=== PATIENT | female | born 1980 | race Caucasian/White ===

== ENCOUNTER 2016-03-22 16:15 | Emergency (ER) | payer MEDICARE, OTHER ==
[2016-03-22] MEDS ORDERED: KETOROLAC 30 MG/ML 1 ML VIAL IVP STA (16:22)
[2016-03-22] MEDS ORDERED: ORPHENADRINE 30 MG/ML 2 ML VIAL IVP STA (16:23)
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
[2016-03-22 16:33] VITALS: TEMP 99.2
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
[2016-03-22] MEDS ORDERED: HYDROmorphone 1 MG/ML 1 ML SYRINGE IVP STA ×2 (17:56→18:41)
--- NOTE | 2016-03-22 18:31 | XR ---
EXAMINATION TYPE: XR knee complete RT DATE OF EXAM: 03/22/2016 6:11 PM COMPARISON: NONE HISTORY: Knee pain TECHNIQUE: 3 views FINDINGS: I see no fracture nor dislocation. Joint spaces are normal. There is a knee prosthesis. The re is no sign of joint effusion. IMPRESSION: Negative right knee exam.
--- NOTE | 2016-03-22 18:32 | XR ---
EXAMINATION TYPE: XR chest 2V DATE OF EXAM: 03/22/2016 6:11 PM COMPARISON: 01/09/2012 HISTORY: Cough and chest pain TECHNIQUE: Frontal and lateral views of the chest are obtained. FINDINGS: Heart and mediastinum are normal. Lungs are clear. Diaphragm is normal. Bony thorax is int act. There is no sign of a pneumothorax. IMPRESSION: Normal chest. No change.
--- NOTE | 2016-03-22 19:12 | XR ---
EXAMINATION TYPE: XR ankle complete RT DATE OF EXAM: 03/22/2016 7:07 PM COMPARISON: NONE HISTORY: Ankle pain TECHNIQUE: 3 views FINDINGS: There are plates and screws fixing old bimalleolar fracture of the ankle. Ankle mortise is anatomic. I see no acute fracture. There is spurring of the posterior malleolus. Subtalar joint is in tact. There are small cystic changes in the lateral dome of the talus. IMPRESSION: Previous surgery. 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
--- NOTE | 2016-03-22 19:18 | XR ---
EXAMINATION TYPE: XR foot complete RT DATE OF EXAM: 03/22/2016 7:10 PM COMPARISON: NONE HISTORY: Foot pain TECHNIQUE: 3 views FINDINGS: I see no fracture nor dislocation. Metatarsals are intact. There are no erosions. There is previous ankle surgery noted. IMPRESSION: No acute abnormality of the right foot.
[2016-03-22 19:36] VITALS: BP 120/70; PULSE 60; RESP 16
== END 2016-03-22 19:36 | disposition home or self-care (01) ==
LOC: EC 16:15
DX: S16.1XXA Strain of muscle, fascia and tendon at neck level, initial encounter (principal); S96.912A Strain of unspecified muscle and tendon at ankle and foot level, left foot, initial encounter; S33.5XXA Sprain of ligaments of lumbar spine, initial encounter; M50.30 Other cervical disc degeneration, unspecified cervical region; G40.909 Epilepsy, unspecified, not intractable, without status epilepticus; G62.9 Polyneuropathy, unspecified; F41.9 Anxiety disorder, unspecified; F32.9 Major depressive disorder, single episode, unspecified; F17.200 Nicotine dependence, unspecified, uncomplicated; Z79.899 Other long term (current) drug therapy; Z88.5 Allergy status to narcotic agent; Z88.6 Allergy status to analgesic agent; V53.6XXA Passenger in pick-up truck or van injured in collision with car, pick-up truck or van in traffic accident, initial encounter; Y92.481 Parking lot as the place of occurrence of the external cause
CPT/HCPCS: 71020; 73562; 73610; 73630; 72125; 72131; 99285; 96374; 96375 ×2; 96376; J2360; J1885; J1170

== ENCOUNTER → 2016-03-26 | Outpatient (CLI) | payer MEDICARE, OTHER ==
--- NOTE | 2016-03-26 14:37 | CT ---
EXAMINATION TYPE: CT knee RT wo con DATE OF EXAM: 03/26/2016 2:31 PM COMPARISON: X-ray 03/22/2016 HISTORY: pain CT DLP: 439.4 mGycm Automated exposure control for dose reduction was used. FINDINGS: There is a right knee prosthesis which results in severe artifact. This markedly limits the exam. Visualized musculature and remaining osseous structures are intact. There is a atrophy of the anterior musculature. There is lucency along the medial and lateral tibial component of the prostheses. IMPRESSION: MARKEDLY LIMITED EXAM DUE TO SEVERE METALLIC ARTIFACT FROM THE PATIENT'S KNEE PROSTHESES. EXAM NEARLY NONDIAGNOSTIC FOR THE LEVEL OF THE KNEE JOINT. REMAINING STRUCTURES DEMONSTRATE NO ACUTE ABNORMALITY . THERE IS A THIN AREA OF LUCENCY ALONG THE LATERAL AND MEDIAL TIBIAL COMPONENT OF THE PROSTHESES. IF THERE IS CONCERN FOR LOOSENING CORRELATE WITH BONE SCAN..
== END | disposition home or self-care (01) ==
LOC: RADCTMAIN 14:12
PROVIDERS: ATTEND Family Medicine
DX: M25.561 Pain in right knee (principal); Z96.651 Presence of right artificial knee joint

== ENCOUNTER → 2016-07-15 | Outpatient (CLI) | payer SELFPAY ==
--- NOTE | 2016-07-15 08:36 | XR ---
EXAMINATION TYPE: XR chest 2V DATE OF EXAM: 07/15/2016 COMPARISON: Chest x-ray March 22, 2016. HISTORY: Tobacco use, annual physical exam TECHNIQUE: Frontal and lateral views of the chest are obtained. FINDINGS: There is no focal air space opacity, pleural effusion, or pneumothorax seen. Rounded 1.1 c m density right lung base likely reflects patient nipple. The cardiac silhouette size is within norm al limits. The osseous structures are intact. IMPRESSION: No acute cardiopulmonary process. Suspect patient's nipple shadow, advise repeat study w ith nipple markers to confirm.
[2016-07-15 08:39] LABS: CH 30.8; CHCM 32.6; HCT 45.8 % (34.0-46.0); HDW 2.37; HGB 14.9 gm/dL (11.4-16.0); MCH 30.8 pg (25.0-35.0); MCHC 32.5 g/dL (31.0-37.0); MCV 94.8 fL (80.0-100.0); Mean Platelet Volume 7.8; RBC 4.83 m/uL (3.80-5.40); WBC 5.6 k/uL (3.8-10.6)
[2016-07-15 08:40] LABS: Appearance,Urine Turbid (Clear); Bacteria,Urine Rare /hpf; Bilirubin,Urine Negative (Negative); Glucose,Urine (UA) Negative (Negative); Ketones,Urine Negative (Negative); Leukocyte Esterase,Urine Large (Negative); Mucus,Urine Moderate /hpf; Nitrite,Urine Negative (Negative); PH, Urine 5.5 (5.0-8.0); Particle Count 43114; Protein,Urine 1+ (Negative); Specific Gravity,Urine 1.021 (1.001-1.035); Squamous Epithelial Cell,Urine 50 /hpf (0-4); UA Billing (MACRO vs. MICRO) MICRO; WBC,Urine 77 /hpf (0-5)
[2016-07-15 15:35] LABS: ALT 231 U/L (9-52); AST 274 U/L (14-36); Alkaline Phosphatase 87 U/L (38-126); Anion Gap 13 mmol/L; Blood Urea Nitrogen 13 mg/dL (7-17); Calcium 8.9 mg/dL (8.4-10.2); Carbon Dioxide 21 mmol/L (22-30); Chloride 107 mmol/L (98-107); Cholesterol 148 mg/dL (<200); Glucose 100 mg/dL (74-99); HDL Cholesterol 76 mg/dL (40-60); Non-African American GFR(MDRD) >60 (>60 ml/min/1.73 sqM); Potassium 4.7 mmol/L (3.5-5.1); Sodium 141 mmol/L (137-145); Total Bilirubin 0.8 mg/dL (0.2-1.3); Total Protein 7.6 g/dL (6.3-8.2); Triglycerides 105 mg/dL (<150)
== END | disposition home or self-care (01) ==
LOC: LABWHC1 07:56
PROVIDERS: ATTEND Internal Medicine
DX: Z00.00 Encounter for general adult medical examination without abnormal findings (principal); E78.2 Mixed hyperlipidemia; E66.1 Drug-induced obesity; G40.909 Epilepsy, unspecified, not intractable, without status epilepticus; I49.9 Cardiac arrhythmia, unspecified; R35.0 Frequency of micturition
CPT/HCPCS: 36415; 71020; 80053; 80061; 80177; 81001; 84439; 84443; 85027

== ENCOUNTER → 2016-12-16 | Outpatient (CLI) | payer MEDICARE, OTHER ==
--- NOTE | 2016-12-16 10:13 | XR ---
EXAMINATION TYPE: XR chest 2V DATE OF EXAM: 12/16/2016 COMPARISON: NONE HISTORY: Chest pain TECHNIQUE: Frontal and lateral views of the chest are obtained. FINDINGS: There is no focal air space opacity. No evidence for pneumothorax. No pleural effusion. The cardiac silhouette size is within normal limits. The osseous structures are grossly intact. IMPRESSION: 1. No acute cardiopulmonary process.
[2016-12-16 10:36] LABS: CH 30.3; CHCM 33.3; HCT 42.4 % (34.0-46.0); HDW 2.52; MCH 30.2 pg (25.0-35.0); MCHC 32.9 g/dL (31.0-37.0); MCV 91.6 fL (80.0-100.0); Mean Platelet Volume 7.6; RBC 4.63 m/uL (3.80-5.40); RDW 13.2 % (11.5-15.5); WBC 7.6 k/uL (3.8-10.6)
[2016-12-16 11:11] LABS: ALT 29 U/L (9-52); AST 20 U/L (14-36); Alkaline Phosphatase 70 U/L (38-126); Anion Gap 11 mmol/L; Blood Urea Nitrogen 8 mg/dL (7-17); Carbon Dioxide 26 mmol/L (22-30); Chloride 104 mmol/L (98-107); Glucose 89 mg/dL (74-99); Non-African American GFR(MDRD) >60 (>60 ml/min/1.73 sqM); Potassium 4.5 mmol/L (3.5-5.1); Sodium 141 mmol/L (137-145); Total Bilirubin 0.4 mg/dL (0.2-1.3); Total Protein 7.8 g/dL (6.3-8.2)
== END | disposition home or self-care (01) ==
LOC: RADXRMAIN 09:39
PROVIDERS: ATTEND Internal Medicine
DX: Z00.00 Encounter for general adult medical examination without abnormal findings (principal); G40.909 Epilepsy, unspecified, not intractable, without status epilepticus; R05 Cough; I11.9 Hypertensive heart disease without heart failure; M79.7 Fibromyalgia
CPT/HCPCS: 36415; 71020; 80053; 80177; 85027

== ENCOUNTER 2017-05-07 16:51 | Emergency (ER) | payer MEDICARE ==
[2017-05-07 17:00] VITALS: TEMP 100.8
[2017-05-07] MEDS ORDERED: LORazepam 2 MG/ML INJ IV STA (17:14)
[2017-05-07] MEDS ORDERED: SODIUM CHLORIDE 0.9% 1,000 ML IV STA (17:14)
--- NOTE | 2017-05-07 17:29 | ED ---
General Adult HPI - General Chief complaint: Seizure Stated complaint: Seizure Time Seen by Provider: 05/07/17 17:01 Source: patient, EMS, RN notes reviewed Mode of arrival: EMS Limitations: no limitations - History of Present Illness Initial comments: 37-year-old female presents to the emergency department with a chief complaint of seizure. Patient states that she has a history of seizures and has had seizures since she was 18. Patient states she has been taking her Keppra as prescribed. She states she is prescribed Xanax which she is not taking as much is normal recently. Patient states she started to feel funny she sat down and then she had a seizure. This was witnessed by her family. They state there is no injuries. He states she was generalized shaking. Patient woke up somewhat confused they state she has returned to normal. Patient states she bit her tongue denies any loss of bowel or bladder control. Patient states she does have a mild headache following the seizure. She denies any other incident. Patient denies any recent fever, chills, shortness of breath, chest pain, back pain, abdominal pain, nausea vomiting, numbness or tingling, dysuria or hematuria, constipation or diarrhea, visual changes, or any other current symptoms. - Related Data Home Medications Medication Instructions Recorded Confirmed levETIRAcetam [Keppra] 500 mg PO BID 02/21/15 05/07/17 Gabapentin 600 mg PO TID 03/22/16 05/07/17 Metoprolol Tartrate [Lopressor] 25 mg PO BID 03/22/16 05/07/17 ALPRAZolam [Xanax] 0.5 mg PO TID PRN 01/29/17 05/07/17 Ibuprofen [Motrin] 800 mg PO Q8H PRN 05/07/17 05/07/17 Methadone HCl [Methadone Intensol] 175 mg PO DAILY@0600 05/07/17 05/07/17 Allergies Allergy/AdvReac Type Severity Reaction Status Date / Time nickel Allergy Unknown Verified 05/07/17 17:24 propoxyphene Allergy Unknown Verified 05/07/17 17:24 [From Darvocet-N] aspirin AdvReac Nausea & Verified 05/07/17 17:24 Vomiting codeine AdvReac Nausea & Verified 05/07/17 17:24 Vomiting Review of Systems ROS Statement: Those systems with pertinent positive or pertinent negative responses have been documented in the HPI. ROS Other: All systems not noted in ROS Statement are negative. Past Medical History Past Medical History: No Reported History, Seizure Disorder Additional Past Medical History / Comment(s): SVT, neuropathy History of Any Multi-Drug Resistant Organisms: None Reported Past Surgical History: Orthopedic Surgery, Tubal Ligation Additional Past Surgical History / Comment(s): rt ankle repair,multiple rt knee repairs, rt shoulder Past Psychological History: Anxiety, Depression Smoking Status: Current every day smoker Past Alcohol Use History: None Reported Past Drug Use History: None Reported General Exam - General Exam Comments Initial Comments: General: The patient is awake and alert, in no distress, and does not appear acutely ill. Eye: Pupils are equal, round and reactive to light, extra-ocular movements are intact; there is normal conjunctiva bilaterally. No signs of icterus. Ears, nose, mouth and throat: There are moist mucous membranes and no oral lesions. Neck: The neck is supple, there is no tenderness. Cardiovascular: There is a regular rate and rhythm. No murmur, rub or gallop is appreciated. Respiratory: Lungs are clear to auscultation, respirations are non-labored, breath sounds are equal. No wheezes, stridor, rales, or rhonchi. Gastrointestinal: Soft, non-distended, non-tender abdomen without masses or organomegaly noted. There is no rebound or guarding present. No CVA tenderness. Bowel sounds are unremarkable. Back: There is no tenderness to palpation in the midline. There is no obvious deformity. No rashes noted. Musculoskeletal: Normal ROM, no tenderness, There is no pedal edema. There is no calf tenderness or swelling. Sensation intact. Pulses equal bilaterally 2+. Neurological: CN II-XII intact, There are no obvious motor or sensory deficits. Coordination appears grossly intact. Speech is normal. Skin: Skin is warm and dry and no rashes or lesions are noted. Psychiatric: Cooperative, appropriate mood & affect, normal judgment. Limitations: no limitations Course Vital Signs 05/07/17 05/07/17 16:56 18:36 Temperature 100.8 F H Pulse Rate 119 H 83 Respiratory 20 16 Rate Blood Pressure 170/92 119/71 O2 Sat by Pulse 97 95 Oximetry EKG Findings - EKG Comments: EKG Findings:: Sinus tachycardia 101, incomplete right bundle branch block, no atopy, no S-T depressions or elevations, normal axis Medical Decision Making - Medical Decision Making 37-year-old female presents for seizure with history of seizures. At this time patient's lab work is been reviewed. We are pending the Keppra level. At this time we discussed continuing her meds for home. We discussed follow-up return parameters all questions. They stated they understood and the on agreement this plan. All questions have been answered. They will be discharged. - Lab Data Result diagrams: 05/07/17 17:30 05/07/17 17:30 Lab Results 05/07/17 05/07/17 05/07/17 Range/Units 17:30 17:30 17:38 WBC 6.0 (3.8-10.6) k/uL RBC 4.27 (3.80-5.40) m/uL Hgb 13.0 (11.4-16.0) gm/dL Hct 37.3 (34.0-46.0) % MCV 87.3 (80.0-100.0) fL MCH 30.5 (25.0-35.0) pg MCHC 35.0 (31.0-37.0) g/dL RDW 12.4 (11.5-15.5) % Plt Count 226 (150-450) k/uL Neutrophils % 51 % Lymphocytes % 38 % Monocytes % 4 % Eosinophils % 5 % Basophils % 1 % Neutrophils # 3.0 (1.3-7.7) k/uL Lymphocytes # 2.3 (1.0-4.8) k/uL Monocytes # 0.2 (0-1.0) k/uL Eosinophils # 0.3 (0-0.7) k/uL Basophils # 0.0 (0-0.2) k/uL Sodium 137 (137-145) mmol/L Potassium 4.4 (3.5-5.1) mmol/L Chloride 99 (98-107) mmol/L Carbon Dioxide 26 (22-30) mmol/L Anion Gap 12 mmol/L BUN 14 (7-17) mg/dL Creatinine 0.61 (0.52-1.04) mg/dL Est GFR (CKD-EPI)AfAm >90 (>60 ml/min/1.73 sqM) Est GFR (CKD-EPI)NonAf >90 (>60 ml/min/1.73 sqM) Glucose 57 L (74-99) mg/dL Calcium 8.8 (8.4-10.2) mg/dL Total Bilirubin 0.4 (0.2-1.3) mg/dL AST 27 (14-36) U/L ALT 27 (9-52) U/L Alkaline Phosphatase 52 (38-126) U/L Total Protein 7.4 (6.3-8.2) g/dL Albumin 4.3 (3.5-5.0) g/dL Urine Color Yellow Urine Appearance Cloudy H (Clear) Urine pH 6.0 (5.0-8.0) Ur Specific [place] 1.015 (1.001-1.035) Urine Protein Negative (Negative) Urine Glucose (UA) Negative (Negative) Urine Ketones Negative (Negative) Urine Blood Negative (Negative) Urine Nitrite Negative (Negative) Urine Bilirubin Negative (Negative) Urine Urobilinogen <2.0 (<2.0) mg/dL Ur Leukocyte Esterase Moderate H (Negative) Urine RBC 2 (0-5) /hpf Urine WBC 16 H (0-5) /hpf Ur Squamous Epith Cells 10 H (0-4) /hpf Hyaline Casts 8 H (0-2) /lpf Urine Mucus Rare H (None) /hpf Urine Opiates Screen Not Detected (NotDetected) Ur Oxycodone Screen Not Detected (NotDetected) Urine Methadone Screen Detected H (NotDetected) Ur Propoxyphene Screen Not Detected (NotDetected) Ur Barbiturates Screen Not Detected (NotDetected) U Tricyclic Antidepress Detected H (NotDetected) Ur Phencyclidine Scrn Not Detected (NotDetected) Ur Amphetamines Screen Not Detected (NotDetected) U Methamphetamines Scrn Not Detected (NotDetected) U Benzodiazepines Scrn Detected H (NotDetected) Urine Cocaine Screen Not Detected (NotDetected) U Marijuana (THC) Screen Not Detected (NotDetected) Disposition Clinical Impression: Generalized seizure Disposition: HOME SELF-CARE Condition: Stable Instructions: Recurrent Seizures in Adults (ED) Additional Instructions: Please use medication as discussed. Please follow up with family doctor if symptoms have not improved over the next two days. Please return to the emergency room if your symptoms increase or worsen or for any other concerns. Referrals: Bret Mata MD [Primary Care Provider] - 1-2 days Time of Disposition: 18:51
[2017-05-07 17:51] LABS: Basophils % (A) 1 %; Eosinophils # (A) 0.3 k/uL (0-0.7); Eosinophils % (A) 5 %; HCT 37.3 % (34.0-46.0); Lymphocytes # (A) 2.3 k/uL (1.0-4.8); Lymphocytes % (A) 38 %; MCH 30.5 pg (25.0-35.0); MCV 87.3 fL (80.0-100.0); Mean Platelet Volume 6.9; Monocytes # (A) 0.2 k/uL (0-1.0); Monocytes % (A) 4 %; Neutrophils % (A) 51 %; Platelet Count 226 k/uL (150-450); RBC 4.27 m/uL (3.80-5.40); RDW 12.4 % (11.5-15.5)
[2017-05-07 18:06] LABS: ALT 27 U/L (9-52); AST 27 U/L (14-36); Albumin 4.3 g/dL (3.5-5.0); Alkaline Phosphatase 52 U/L (38-126); Anion Gap 12 mmol/L; Blood Urea Nitrogen 14 mg/dL (7-17); Calcium 8.8 mg/dL (8.4-10.2); Carbon Dioxide 26 mmol/L (22-30); Chloride 99 mmol/L (98-107); Glucose 57 mg/dL (74-99); Potassium 4.4 mmol/L (3.5-5.1); Sodium 137 mmol/L (137-145); Total Bilirubin 0.4 mg/dL (0.2-1.3); Total Protein 7.4 g/dL (6.3-8.2)
[2017-05-07 18:11] LABS: Appearance,Urine Cloudy (Clear); Bilirubin,Urine Negative (Negative); Blood,Urine Negative (Negative); Color,Urine Yellow; Glucose,Urine (UA) Negative (Negative); Hyaline Casts,Urine 8 /lpf (0-2); Ketones,Urine Negative (Negative); Leukocyte Esterase,Urine Moderate (Negative); Mucus,Urine Rare /hpf; Nitrite,Urine Negative (Negative); Protein,Urine Negative (Negative); RBC,Urine 2 /hpf (0-5); Specific Gravity,Urine 1.015 (1.001-1.035); Squamous Epithelial Cell,Urine 10 /hpf (0-4); Urobilinogen,Urine <2.0 mg/dL (<2.0); WBC,Urine 16 /hpf (0-5)
[2017-05-07 18:23] LABS: Amphetamine Screen,Urine Not Detected (NotDetected); Barbiturate Screen,Urine Not Detected (NotDetected); Benzodiazepines Screen,Urine Detected (NotDetected); Cocaine Screen,Urine Not Detected (NotDetected); Methadone Screen, Urine Detected (NotDetected); Opiate Screen,Urine Not Detected (NotDetected); Oxycodone Screen, Urine Not Detected (NotDetected); Phencyclidine Screen,Urine Not Detected (NotDetected); Tricyclic Antidepressant,Urine Detected (NotDetected); Urn Cannabinoid Scrn Not Detected (NotDetected)
[2017-05-07 18:38] VITALS: BP 119/71; PULSE 83; RESP 16
== END 2017-05-07 19:01 | disposition home or self-care (01) ==
LOC: EC 16:51
DX: G40.909 Epilepsy, unspecified, not intractable, without status epilepticus (principal); R00.0 Tachycardia, unspecified; F32.9 Major depressive disorder, single episode, unspecified; F41.9 Anxiety disorder, unspecified; F17.200 Nicotine dependence, unspecified, uncomplicated; Z88.5 Allergy status to narcotic agent; Z88.8 Allergy status to other drugs, medicaments and biological substances; Z91.048 Other nonmedicinal substance allergy status; Z79.899 Other long term (current) drug therapy
CPT/HCPCS: 36415; 80053; 80177; 80306; 81001; 85025; 93005; 96361; 96374; 99284

== ENCOUNTER 2017-08-29 11:06 | Emergency (ER) | payer MEDICARE ==
[2017-08-29] MEDS ORDERED: SODIUM CHLORIDE 0.9% 1,000 ML IV STA ×2 (11:40)
[2017-08-29] MEDS ORDERED: LORazepam 2 MG/ML INJ IV STA ×2 (11:41→13:30)
[2017-08-29] MEDS ORDERED: IPRATROPIUM-ALBUTEROL 3 ML NEB INHALATION STA (11:54)
[2017-08-29] MEDS ORDERED: levETIRAcetam IV 1,000 MG in SALINE 1 100ML.BAG IVPB STA (11:56)
[2017-08-29 12:16] LABS: Basophils % (A) 0 %; Eosinophils # (A) 0.1 k/uL (0-0.7); Eosinophils % (A) 1 %; HCT 37.7 % (34.0-46.0); HGB 13.2 gm/dL (11.4-16.0); Lymphocytes # (A) 2.2 k/uL (1.0-4.8); Lymphocytes % (A) 22 %; MCH 30.5 pg (25.0-35.0); Mean Platelet Volume 6.7; Monocytes # (A) 0.5 k/uL (0-1.0); Monocytes % (A) 5 %; Neutrophils # (A) 6.9 k/uL (1.3-7.7); Neutrophils % (A) 71 %; Platelet Count 223 k/uL (150-450); RBC 4.33 m/uL (3.80-5.40); RDW 12.7 % (11.5-15.5); WBC 9.7 k/uL (3.8-10.6)
[2017-08-29 12:33] LABS: ALT 28 U/L (9-52); AST 28 U/L (14-36); Albumin 4.9 g/dL (3.5-5.0); Alkaline Phosphatase 74 U/L (38-126); Anion Gap 12 mmol/L; Blood Urea Nitrogen 13 mg/dL (7-17); Calcium 9.1 mg/dL (8.4-10.2); Carbamazepine (Tegretol) <3.0 ug/mL; Carbon Dioxide 23 mmol/L (22-30); Chloride 104 mmol/L (98-107); Glucose 140 mg/dL (74-99); Potassium 4.2 mmol/L (3.5-5.1); Sodium 139 mmol/L (137-145); Total Bilirubin 0.8 mg/dL (0.2-1.3); Total Protein 8.1 g/dL (6.3-8.2)
[2017-08-29 12:36] LABS: Valproic Acid (Depakene) <10.0 ug/mL
--- NOTE | 2017-08-29 12:48 | XR ---
EXAMINATION TYPE: XR chest 2V DATE OF EXAM: 08/29/2017 COMPARISON: Chest x-ray December 16, 2016 HISTORY: Chest pain and cough TECHNIQUE: Frontal and lateral views of the chest are obtained. FINDINGS: There is no focal air space opacity, pleural effusion, or pneumothorax seen. The cardiac silhouette size is within normal limits. The osseous structures are intact. IMPRESSION: No acute process. No significant change from prior.
--- NOTE | 2017-08-29 12:50 | ED ---
Seizure HPI - General Source: patient, RN notes reviewed, old records reviewed Mode of arrival: wheelchair Limitations: no limitations <Vaishali Isbell - Last Filed: 09/01/17 11:10> <Shanika Peter - Last Filed: 09/01/17 21:14> - General Chief Complaint: Seizure Stated Complaint: seizure Time Seen by Provider: 08/29/17 11:32 - History of Present Illness Initial Comments: This is a 37 year old female with CC of seizure activity while in a cab driving to court for her son. She has a history of bipolar disorder and arrives quite manic. Patient reports she recently has been moving and stopped taking her Xanax and Keppra for the pat 2 days. She takes 1mg TID of xanax. Patient states that she believes the seizure lasted a few minutes. She was brought here in the cab. No one else was with ehr. She reports she has been having non productive cough diagnosed with influenza last week. (Vaishali Isbell) - Related Data Home Medications Medication Instructions Recorded Confirmed levETIRAcetam [Keppra] 500 mg PO BID 02/21/15 08/29/17 Gabapentin 600 mg PO TID 03/22/16 08/29/17 Metoprolol Tartrate [Lopressor] 25 mg PO BID 03/22/16 08/29/17 ALPRAZolam [Xanax] 0.5 mg PO TID PRN 01/29/17 08/29/17 Methadone HCl [Methadone Intensol] 90 mg PO DAILY 05/07/17 08/29/17 Previous Rx's Medication Instructions Recorded Albuterol Inhaler [Ventolin Hfa 1 - 2 puff INHALATION RT-Q6H PRN 08/29/17 Inhaler] #1 inhaler methylPREDNISolone Dose Pack 4 mg PO DIRECTED #21 package 08/29/17 [Medrol Dose Pack] Allergies Allergy/AdvReac Type Severity Reaction Status Date / Time nickel Allergy Unknown Verified 08/29/17 12:09 propoxyphene Allergy Unknown Verified 08/29/17 12:09 [From Darvocet-N] aspirin AdvReac Nausea & Verified 08/29/17 12:09 Vomiting codeine AdvReac Nausea & Verified 08/29/17 12:09 Vomiting Review of Systems ROS Other: All systems not noted in ROS Statement are negative. <Vaishali Isbell - Last Filed: 09/01/17 11:10> ROS Other: All systems not noted in ROS Statement are negative. <Shanika Peter P - Last Filed: 09/01/17 21:14> ROS Statement: Those systems with pertinent positive or pertinent negative responses have been documented in the HPI. Past Medical History Past Medical History: Seizure Disorder Additional Past Medical History / Comment(s): SVT, neuropathy History of Any Multi-Drug Resistant Organisms: None Reported Past Surgical History: Orthopedic Surgery, Tubal Ligation Additional Past Surgical History / Comment(s): rt ankle repair,multiple rt knee repairs, rt shoulder Past Psychological History: Anxiety, Depression Smoking Status: Current every day smoker Past Alcohol Use History: None Reported Past Drug Use History: None Reported <Vaishali Isbell - Last Filed: 09/01/17 11:10> General Exam Limitations: no limitations General appearance: alert, in no apparent distress Head exam: Present: atraumatic, normocephalic, normal inspection Eye exam: Present: normal appearance, PERRL, EOMI. Absent: scleral icterus, conjunctival injection, periorbital swelling ENT exam: Present: normal exam, mucous membranes moist Neck exam: Present: normal inspection. Absent: tenderness, meningismus, lymphadenopathy Respiratory exam: Present: normal lung sounds bilaterally, wheezes (minimal bilateral wheezing. ). Absent: respiratory distress, rales, rhonchi, stridor GI/Abdominal exam: Present: soft, normal bowel sounds. Absent: distended, tenderness, guarding, rebound, rigid Extremities exam: Present: normal inspection, full ROM, normal capillary refill. Absent: tenderness, pedal edema, joint swelling, calf tenderness Back exam: Present: normal inspection Neurological exam: Present: alert, oriented X3, CN II-XII intact Psychiatric exam: Present: anxious, manic (walking around the room, calling multiple family members. ). Absent: normal affect, normal mood Skin exam: Present: warm, dry, intact, normal color. Absent: rash <Vaishali Isbell - Last Filed: 09/01/17 11:10> <Shanika Peter - Last Filed: 09/01/17 21:14> - General Exam Comments Initial Comments: 37 year old female, no distress. (Vaishali Isbell) Vital Signs 08/29/17 08/29/17 08/29/17 11:11 12:12 12:21 Temperature 98.6 F Pulse Rate 111 H 110 H 118 H Respiratory 20 22 20 Rate Blood Pressure 136/75 O2 Sat by Pulse 97 Oximetry 08/29/17 08/29/17 13:40 14:52 Temperature 100.1 F H Pulse Rate 99 100 Respiratory 20 22 Rate Blood Pressure 144/78 129/72 O2 Sat by Pulse 96 95 Oximetry Medical Decision Making - Lab Data Result diagrams: 08/29/17 12:00 08/29/17 12:00 - Radiology Data Radiology results: report reviewed <Vaishali Isbell - Last Filed: 09/01/17 11:10> - Lab Data Result diagrams: 08/29/17 12:00 08/29/17 12:00 <Shanika Peter - Last Filed: 09/01/17 21:14> - Medical Decision Making 37 year old presents with history of seizure. She reports she is under stress, and stopped taking Xanax and Keppra 2 days ago. She was given 1g of keppra in ED , 2 g ativan. She did calm down, she initially was quite manic. Labs were normal. Normal CXR noted. She does have wheezing and reports diagnosed with infuenza last week. Will start on medrol dose pack .Discussed the importance of taking medication as prescribed and not to quit taking benzodiazapines abruptly. (Vaishali Isbell) Patient was seen and evaluated independently by the mid-level provider. I was present and available in the emergency department for evaluation but was not asked by the mid-level provider to see this patient. I agree with the mid- level provider's evaluation and treatment of this patient as documented in the note. (Shanika Peter) - Lab Data Lab Results 08/29/17 08/29/17 08/29/17 Range/Units 12:00 12:00 12:00 WBC 9.7 (3.8-10.6) k/uL RBC 4.33 (3.80-5.40) m/uL Hgb 13.2 (11.4-16.0) gm/dL Hct 37.7 (34.0-46.0) % MCV 87.0 (80.0-100.0) fL MCH 30.5 (25.0-35.0) pg MCHC 35.0 (31.0-37.0) g/dL RDW 12.7 (11.5-15.5) % Plt Count 223 (150-450) k/uL Neutrophils % 71 % Lymphocytes % 22 % Monocytes % 5 % Eosinophils % 1 % Basophils % 0 % Neutrophils # 6.9 (1.3-7.7) k/uL Lymphocytes # 2.2 (1.0-4.8) k/uL Monocytes # 0.5 (0-1.0) k/uL Eosinophils # 0.1 (0-0.7) k/uL Basophils # 0.0 (0-0.2) k/uL Sodium 139 (137-145) mmol/L Potassium 4.2 (3.5-5.1) mmol/L Chloride 104 (98-107) mmol/L Carbon Dioxide 23 (22-30) mmol/L Anion Gap 12 mmol/L BUN 13 (7-17) mg/dL Creatinine 0.60 (0.52-1.04) mg/dL Est GFR (CKD-EPI)AfAm >90 (>60 ml/min/1.73 sqM) Est GFR (CKD-EPI)NonAf >90 (>60 ml/min/1.73 sqM) Glucose 140 H (74-99) mg/dL Calcium 9.1 (8.4-10.2) mg/dL Total Bilirubin 0.8 (0.2-1.3) mg/dL AST 28 (14-36) U/L ALT 28 (9-52) U/L Alkaline Phosphatase 74 (38-126) U/L Total Protein 8.1 (6.3-8.2) g/dL Albumin 4.9 (3.5-5.0) g/dL Valproic Acid <10.0 ug/mL Carbamazepine <3.0 ug/mL Levetiracetam 1.0 L (3.0-60.0) ug/mL EKG shows sinus tachycardia and completely remitted 5. 107 bpm. MD was 120 ms pediatric estrogen 104. QTQTC 370/439 ms. The 08/29/17 14:40 (Vaishali Isbell) - Radiology Data CXR is negative for any acute process. (Vaishali Isbell) Disposition Is patient prescribed a controlled substance at d/c from ED?: No When asked, does pt state using other controlled substances?: No If prescribed controlled substance>3 days was MAPS reviewed?: No If opioid is for acute pain is fill amount 7 days or less?: No If Rx opioid, was Start Talking consent form obtained?: No Time of Disposition: 14:29 <Vaishali Isbell - Last Filed: 09/01/17 11:10> <Shanika Peter - Last Filed: 09/01/17 21:14> Clinical Impression: History of seizure, Anxiety, Bronchitis Disposition: HOME SELF-CARE Condition: Good Instructions: Acute Bronchitis (ED), Recurrent Seizures in Adults (ED) Additional Instructions: Patient needs to take the Keppra and take your Xanax as prescribed. Return to the emergency department if any alarming signs or symptoms occur. Prescriptions: Albuterol Inhaler [Ventolin Hfa Inhaler] 1 - 2 puff INHALATION RT-Q6H PRN #1 inhaler PRN Reason: Shortness Of Breath methylPREDNISolone Dose Pack [Medrol Dose Pack] 4 mg PO DIRECTED #21 package Referrals: Bret Mata MD [Primary Care Provider] - 1-2 days
[2017-08-29] MEDS ORDERED: IBUPROFEN 600 MG STARTER PACK 4 TAB BTL PO STA (14:37)
[2017-08-29 14:54] VITALS: BP 129/72; PULSE 100; RESP 22; TEMP 100.1
== END 2017-08-29 14:52 | disposition home or self-care (01) ==
LOC: EC 11:06
DX: J40 Bronchitis, not specified as acute or chronic (principal); F41.9 Anxiety disorder, unspecified; G40.909 Epilepsy, unspecified, not intractable, without status epilepticus; R00.0 Tachycardia, unspecified; F30.9 Manic episode, unspecified; G62.9 Polyneuropathy, unspecified; F17.200 Nicotine dependence, unspecified, uncomplicated; Z79.891 Long term (current) use of opiate analgesic; Z79.899 Other long term (current) drug therapy; Z88.5 Allergy status to narcotic agent; Z88.6 Allergy status to analgesic agent; Z88.8 Allergy status to other drugs, medicaments and biological substances; Z91.048 Other nonmedicinal substance allergy status
CPT/HCPCS: 36415; 94640; 93005; 80156; 80164; 80053; 80177; 85025; 71046; 99284; 96374; 96375; 96376; 96361 ×3; J2060; J1953

== ENCOUNTER 2023-08-24 16:43 | Emergency (ER) | payer MEDICARE ==
[2023-08-24 16:56] VITALS: TEMP 98.2
--- NOTE | 2023-08-24 18:40 | ED ---
General Adult HPI - General Chief complaint: Recheck/Abnormal Lab/Rx Stated complaint: Throat pain, chest pain Time Seen by Provider: 08/24/23 18:00 Source: patient, RN notes reviewed Mode of arrival: ambulatory Limitations: no limitations - History of Present Illness Initial comments: 43-year-old female presenting with rash x 1 day. States she woke up yesterday morning and noticed red spots all over her chest, neck, and face. She went to [facility] where she was admitted for vasculitis. She states she is confused why she was discharged and is confused about the treatment plan. Denies pain, itchiness, fever, chills, sore throat, cough, URI symptoms. This never happened before. - Related Data Home Medications Medication Instructions Recorded Confirmed levETIRAcetam [Keppra] 500 mg PO BID 02/21/15 08/29/17 Gabapentin 600 mg PO TID 03/22/16 08/29/17 Metoprolol Tartrate [Lopressor] 25 mg PO BID 03/22/16 08/29/17 ALPRAZolam [Xanax] 0.5 mg PO TID PRN 01/29/17 08/29/17 Methadone HCl [Methadone Intensol] 90 mg PO DAILY 05/07/17 08/29/17 Previous Rx's Medication Instructions Recorded Albuterol Inhaler [Ventolin Hfa 1 - 2 puff INHALATION RT-Q6H PRN 08/29/17 Inhaler] #1 inhaler methylPREDNISolone Dose Pack 4 mg PO DIRECTED #21 package 08/29/17 [Medrol Dose Pack] Allergies Allergy/AdvReac Type Severity Reaction Status Date / Time nickel Allergy Unknown Verified 08/24/23 16:56 propoxyphene Allergy Unknown Verified 08/24/23 16:56 [From Darvocet-N] aspirin AdvReac Nausea & Verified 08/24/23 16:56 Vomiting codeine AdvReac Nausea & Verified 08/24/23 16:56 Vomiting Review of Systems ROS Statement: Those systems with pertinent positive or pertinent negative responses have been documented in the HPI. ROS Other: All systems not noted in ROS Statement are negative. Past Medical History Past Medical History: Seizure Disorder Additional Past Medical History / Comment(s): SVT, neuropathy History of Any Multi-Drug Resistant Organisms: None Reported Past Surgical History: Orthopedic Surgery, Tubal Ligation Additional Past Surgical History / Comment(s): rt ankle repair,multiple rt knee repairs, rt shoulder Past Psychological History: Anxiety, Depression Smoking Status: Former smoker, Vaper Past Alcohol Use History: None Reported Past Drug Use History: None Reported General Exam Limitations: no limitations General appearance: alert, in no apparent distress Head exam: Present: atraumatic, normocephalic, normal inspection Eye exam: Present: normal appearance, PERRL, EOMI. Absent: scleral icterus, conjunctival injection, periorbital swelling ENT exam: Present: normal exam, mucous membranes moist Neck exam: Present: normal inspection. Absent: tenderness, meningismus, lymphadenopathy Respiratory exam: Present: normal lung sounds bilaterally. Absent: respiratory distress, wheezes, rales, rhonchi, stridor Cardiovascular Exam: Present: regular rate, normal rhythm, normal heart sounds. Absent: systolic murmur, diastolic murmur, rubs, gallop, clicks GI/Abdominal exam: Present: soft, normal bowel sounds. Absent: distended, tend erness, guarding, rebound, rigid Extremities exam: Present: normal inspection, full ROM, normal capillary refill. Absent: tenderness, pedal edema, joint swelling, calf tenderness Neurological exam: Present: alert, oriented X3 Psychiatric exam: Present: normal affect, normal mood Skin exam: Present: warm, dry, intact, normal color, rash (Diffuse, nonblanching petechiae present on chest, neck, forehead, and extending into proximal bilateral legs and arms) Course Vital Signs 08/24/23 08/24/23 16:53 22:11 Temperature 98.2 F Pulse Rate 64 53 L Respiratory 20 16 Rate Blood Pressure 145/90 124/80 O2 Sat by Pulse 97 98 Oximetry Medical Decision Making - Medical Decision Making Was pt. sent in by a medical professional or institution (, PA, VALIDATION CONSULTANT, urgent care, hospital, or long-term...) When possible be specific @ -No Did you speak to anyone other than the patient for history (EMS, parent, family, police, friend...)? What history was obtained from this source @ -No Did you review nursing and triage notes (agree or disagree)? Why? @ -I reviewed and agree with nursing and triage notes Were old charts reviewed (outside hosp., previous admission, EMS record, old EKG , old radiological studies, urgent care reports/EKG's, long-term records)? Report findings @ -No old charts were reviewed Differential Diagnosis (chest pain, altered mental status, abdominal pain women, abdominal pain men, vaginal bleeding, weakness, fever, dyspnea, syncope, headache, dizziness, GI bleed, back pain, seizure, CVA, palpatations, mental health, musculoskeletal)? @ -Petechiae, vasculitis, leukemia, postop rash, contact dermatitis, poison oak, cellulitis EKG interpreted by me (3pts min.). @ -None X-rays interpreted by me (1pt min.). @ -None done CT interpreted by me (1pt min.). @ -None done U/S interpreted by me (1pt. min.). @ -None done What testing was considered but not performed or refused? (CT, X-rays, U/S, labs)? Why? @ -None What meds were considered but not given or refused? Why? @ -None Did you discuss the management of the patient with other professionals (prof brewer i.e. , PA, VALIDATION CONSULTANT, lab, RT, psych nurse, rn social services, vp ancillary, teacher, environmental technical officer, case management social worker)? Give summary @ -No Was smoking cessation discussed for >3mins.? @ -No Was critical care preformed (if so, how long)? @ -No Were there social determinants of health that impacted care today? How? (Homelessness, low income, unemployed, alcoholism, drug addiction, transportation, low edu. Level, literacy, decrease access to med. care, group home, rehab)? @ -No Was there de-escalation of care discussed even if they declined (Discuss DNR or withdrawal of care, Hospice)? DNR status @ -No What co-morbidities impacted this encounter? (DM, HTN, Smoking, COPD, CAD, Cancer, CVA, ARF, Chemo, Hep., AIDS, mental health diagnosis, sleep apnea, morbid obesity)? @ -None Was patient admitted / discharged? Hospital course, mention meds given and route, prescriptions, significant lab abnormalities, going to OR and other pertinent info. @ -Patient was discharged. Patient was seen and evaluated for rash x 1 day. Patient is currently asymptomatic. Vital signs are within normal limits. Physical exam reveals nonblanching petechial rash extending from chest, neck, face, and to upper and lower extremities. Lab work including CBC, CMP, coags obtained and are unremarkable. Discussed with patient that there are no signs of emergent etiology causing petechial rash at this time. Advise close follow- up with PCP for further evaluation. Strict return parameters discussed. Patient is agreeable to plan. Case was discussed with my attending Dr. Robles. Patient discharged in stable condition. Undiagnosed new problem with uncertain prognosis? @ -No Drug Therapy requiring intensive monitoring for toxicity (Heparin, Nitro, Insulin, Cardizem)? @ -No Were any procedures done? @ -No Diagnosis/symptom? @ -Petechial rash Acute, or Chronic, or Acute on Chronic? @ -Acute Uncomplicated (without systemic symptoms) or Complicated (systemic symptoms)? @ -Uncomplicated Side effects of treatment? @ -No Exacerbation, Progression, or Severe Exacerbation? @ -No Poses a threat to life or bodily function? How? (Chest pain, [place], [place], pneumonia, PE, COPD, DKA, ARF, appy, cholecystitis, CVA, Diverticulitis, Homicidal, Suicidal, threat to staff... and all critical care pts) @ -Unlikely at this time - Lab Data Result diagrams: 08/24/23 19:34 08/24/23 19:34 Lab Results 08/24/23 08/24/23 08/24/23 Range/Units 19:34 19:34 19:34 WBC 5.1 (3.8-10.6) k/uL RBC 4.20 (3.80-5.40) m/uL Hgb 12.4 (11.4-16.0) gm/dL Hct 37.5 (34.0-46.0) % MCV 89.3 (80.0-100.0) fL MCH 29.6 (25.0-35.0) pg MCHC 33.1 (31.0-37.0) g/dL RDW 12.9 (11.5-15.5) % Plt Count 207 (150-450) k/uL MPV 8.6 Neutrophils % 73 % Lymphocytes % 22 % Monocytes % 3 % Eosinophils % 0 % Basophils % 0 % Neutrophils # 3.7 (1.3-7.7) k/uL Lymphocytes # 1.1 (1.0-4.8) k/uL Monocytes # 0.1 (0-1.0) k/uL Eosinophils # 0.0 (0-0.7) k/uL Basophils # 0.0 (0-0.2) k/uL PT 10.8 (10.0-12.5) sec INR 1.0 (<1.2) APTT 26.2 (22.0-30.0) sec Sodium 138 (137-145) mmol/L Potassium 4.9 (3.5-5.1) mmol/L Chloride 105 (98-107) mmol/L Carbon Dioxide 20 L (22-30) mmol/L Anion Gap 13 mmol/L BUN 16 (7-17) mg/dL Creatinine 0.67 (0.52-1.04) mg/dL Est GFR (CKD-EPI)AfAm >90 (>60 ml/min/1.73 sqM) Est GFR (CKD-EPI)NonAf >90 (>60 ml/min/1.73 sqM) Glucose 136 H (74-99) mg/dL Calcium 9.0 (8.4-10.2) mg/dL Total Bilirubin 0.4 (0.2-1.3) mg/dL AST 26 (14-36) U/L ALT 19 (4-34) U/L Alkaline Phosphatase 47 (38-126) U/L Total Protein 7.6 (6.3-8.2) g/dL Albumin 4.6 (3.5-5.0) g/dL Disposition Clinical Impression: Petechial rash Disposition: HOME SELF-CARE Condition: Stable Additional Instructions: Follow-up with PCP. Please return to the Emergency Department if symptoms worsen or any other concerns. Is patient prescribed a controlled substance at d/c from ED?: No Referrals: Peter Paredes DO [Primary Care Provider] - 1-2 days Time of Disposition: 22:04
[2023-08-24 20:12] LABS: Basophils % (A) 0 %; Eosinophils % (A) 0 %; HCT 37.5 % (34.0-46.0); HGB 12.4 gm/dL (11.4-16.0); Lymphocytes # (A) 1.1 k/uL (1.0-4.8); Lymphocytes % (A) 22 %; MCH 29.6 pg (25.0-35.0); MCHC 33.1 g/dL (31.0-37.0); MCV 89.3 fL (80.0-100.0); Mean Platelet Volume 8.6; Monocytes # (A) 0.1 k/uL (0-1.0); Monocytes % (A) 3 %; Neutrophils # (A) 3.7 k/uL (1.3-7.7); Neutrophils % (A) 73 %; Platelet Count 207 k/uL (150-450); RDW 12.9 % (11.5-15.5); WBC 5.1 k/uL (3.8-10.6)
[2023-08-24 20:18] LABS: Partial Thromboplastin Time 26.2 sec (22.0-30.0); Prothrombin Time 10.8 sec (10.0-12.5)
[2023-08-24 21:05] LABS: African American GFR (CKD) >90 (>60 ml/min/1.73 sqM); Anion Gap 13 mmol/L; Blood Urea Nitrogen 16 mg/dL (7-17); Carbon Dioxide 20 mmol/L (22-30); Chloride 105 mmol/L (98-107); Glucose 136 mg/dL (74-99); Potassium 4.9 mmol/L (3.5-5.1); Sodium 138 mmol/L (137-145)
[2023-08-24 21:06] LABS: ALT 19 U/L (4-34); AST 26 U/L (14-36); Albumin 4.6 g/dL (3.5-5.0); Alkaline Phosphatase 47 U/L (38-126); Non-African American GFR(CKD) >90 (>60 ml/min/1.73 sqM); Total Bilirubin 0.4 mg/dL (0.2-1.3); Total Protein 7.6 g/dL (6.3-8.2)
[2023-08-24 22:20] VITALS: BP 124/80; PULSE 53; RESP 16
== END 2023-08-24 22:11 | disposition home or self-care (01) ==
LOC: EC 16:43
DX: R23.3 Spontaneous ecchymoses (principal); F17.290 Nicotine dependence, other tobacco product, uncomplicated; Z88.5 Allergy status to narcotic agent; Z88.6 Allergy status to analgesic agent; Z88.8 Allergy status to other drugs, medicaments and biological substances
CPT/HCPCS: 36415; 80053; 85025; 85610; 85730; 99284